=== PATIENT | female | born 1995 | race Caucasian/White ===

== ENCOUNTER 2017-07-20 19:27 | Emergency (ER) | payer BC, OTHER ==
[2017-07-20] MEDS ORDERED: NS 1,000 ML IV ONE (19:45)
[2017-07-20] MEDS ORDERED: methylPREDNISolone SOD SUCC 125 MG/2 ML VIAL IVP ONE (19:45)
[2017-07-20] MEDS ORDERED: RANITIDINE 50 MG/2 ML VIAL IVP ONE (19:45)
--- NOTE | 2017-07-20 19:45 | EDPHY ---
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 "PTSD from hospital stays.". 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 She then went to the gym and had on long pants. She remembers using the mat. Upon returning home she noticed that she had hives that started on bilateral lower legs and spread up through torso and on to neck and shoulders. Reports that they are extremely itchy. This has never happened to her before. Denies any new detergent/foods/medications. Patient denies any shortness of breath/ difficulty swallowing/difficulty talking/facial swelling. She tried nothing for the symptoms. No prior history of anaphylaxis. LMP 2-3 weeks ago. 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 "PTSD from hospital stays." PSH:none Social history: Employed. Currently in a relationship. Family history noncontributory. CONSTITUTIONAL: Extremely pleasant no distress young adult white female, awake and alert, no obvious distress HEENT: Atraumatic and normocephalic, PERRL, EOMI. Nares patent; no rhinorrhea; no nasal mucosal edema. Tympanic membranes clear. Oropharynx clear, no exudate and moist pink mucosa. Airway patent. No lymphadenopathy. No meningismus. Cardiovascular: Normal S1/S2, regular rate, regular rhythm, without murmur rub or gallop. PULMONARY/CHEST: Symmetrical and nontender. Clear to auscultation bilaterally. Good air movement. No accessory muscle usage. ABDOMEN: Soft, nondistended, nontender, no rebound, no guarding, no peritoneal signs, no masses or organomegaly. No CVAT. EXTREMITIES: 2/2 pulses, strength 5/5, no deformities, no clubbing, no cyanosis or edema. NEUROLOGICAL: no focal neuro deficits. GCS 15. SKIN: Warm and dry, urticaria noted on thighs torso and back with superficial excoriations from scratching. no erythema. no rash. Good capillary refill. (Yeny Gaston) Constitutional: Initial Vital Signs Temperature (C) 36.8 C 07/20/17 19:30 Heart Rate 61 07/20/17 19:30 Respiratory Rate 18 07/20/17 19:30 Blood Pressure 99/58 L 07/20/17 19:30 O2 Sat (%) 100 07/20/17 19:30 O2 Delivery Mode Room Air Allergies/Adverse Reactions: No Known Allergies Allergy (Verified 07/20/17 19:33) Home Medications: Medication Instructions Recorded NK [No Known Home Meds] 01/16/16 EPINEPHrine [Epipen 0.3 MG] 0.3 mg IM ONCE #2 syr 07/20/17 Medical Decision Making ED Course/Re-evaluation: 1944: Given IV Solu-Medrol 125 mg, IV Benadryl 50 mg, IV Zantac No signs of airway compromise/respiratory distress/anaphylaxis/angioedema. reassessed patient 1 hr later; complete resolution of symptoms. Given prescription for EpiPen and advised to use Benadryl p.r.n.. Patient is unsure of the trigger at this point. This patient was seen under the supervision of my secondary supervising physician. I evaluated care for this patient independently. (Yeny Gaston) Differential Diagnosis: Differential diagnosis includes but is not limited to C1 esterase deficiency, mast cell activation syndrome, anaphylaxis. (Yeny Gaston) Other Provider: PHYSICIAN DOCUMENTATION: The patient was evaluated and managed by the Physician Heart Surgeon. My co- signature indicates that I have reviewed this chart and I agree with the findings and plan of care as documented. I am the secondary supervising physician. (Orlando Patterson) - Data Points Medications Given: Discontinued Medications Diphenhydramine HCl (Benadryl Injection) 50 mg IVP EDNOW ONE Stop: 07/20/17 19:46 Last Admin: 07/20/17 19:51 Dose: 50 mg Sodium Chloride (Ns) 1,000 mls @ 0 mls/hr IV ONCE ONE; Wide Open PRN Reason: Protocol Stop: 07/20/17 19:46 Last Admin: 07/20/17 19:51 Dose: 1,000 mls Methylprednisolone Sodium Succinate (Solu-Medrol) 125 mg IVP EDNOW ONE Stop: 07/20/17 19:46 Last Admin: 07/20/17 19:51 Dose: 125 mg Ranitidine HCl (Zantac) 50 mg IVP EDNOW ONE Stop: 07/20/17 19:46 Last Admin: 07/20/17 19:52 Dose: 50 mg Departure - Departure Disposition: Home, Routine, Self-Care Clinical Impression: Urticaria Condition: Good Instructions: Urticaria (ED) Additional Instructions: Take Benadryl 25-50 mg every 4-6 hours as needed for allergic reaction, itching. Take cool showers until all hives have resolved. Allergic Reaction: Return to the Emergency Department for lip, tongue, throat, or face swelling, or any trouble breathing or swallowing. Referrals: PCP Not In,Dictionary [Medical Doctor] - As per Instructions [facility],. [Clinic] - As per Instructions Prescriptions: EPINEPHrine [Epipen 0.3 MG] 0.3 mg IM ONCE #2 syr
[2017-07-20 20:57] VITALS: BP 110/62
[2017-07-20] MEDS ORDERED: SODIUM CL 0.9% 20 ML VIAL ONE (22:05)
[2017-07-20] MEDS ORDERED: RANITIDINE 50 MG/2 ML VIAL ONE (22:05)
[2017-07-20] MEDS ORDERED: methylPREDNISolone SOD SUCC 125 MG/2 ML VIAL ONE (22:05)
== END 2017-07-20 20:56 | disposition home or self-care (01) ==
DX: L50.9 Urticaria, unspecified (principal)
CPT/HCPCS: 96374; J1200; J2780; J2930

== ENCOUNTER 2017-07-25 19:55 | Emergency (ER) | payer OTHER ==
--- NOTE | 2017-07-25 20:05 | EDPHY ---
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 "PTSD from hospital stays.". PSH:none - Social History Smoking Status: Never smoked Constitutional: Initial Vital Signs Temperature (C) 36.7 C 07/25/17 19:58 Heart Rate 81 07/25/17 19:58 Respiratory Rate 18 07/25/17 19:58 Blood Pressure 110/66 07/25/17 19:58 O2 Sat (%) 99 07/25/17 19:58 O2 Delivery Mode Room Air Allergies/Adverse Reactions: No Known Allergies Allergy (Verified 07/20/17 19:33) Home Medications: Medication Instructions Recorded EPINEPHrine [Epipen 0.3 MG] 0.3 mg IM ONCE #2 syr 07/20/17 Famotidine [Pepcid 20 MG (OTC)] 20 mg PO DAILY #10 tab 07/25/17 diphenhydrAMINE [Benadryl 25 MG 25 mg PO 07/25/17 (*)] predniSONE [Prednisone] mg PO 07/25/17 Medical Decision Making ED Course/Re-evaluation: CHIEF COMPLAINT: Rash HISTORY OF PRESENT ILLNESS: The patient is a 21 y/o female complaining of a rash since Thursday, 5 days ago. She was seen in this emergency department on Thursday for these symptoms and subsequently saw her PCP who prescribed her a Medrol dose pack and advised to take Benadryl. She has one day left of her Medrol dose pack. Last took Benadryl around an hour ago. She has also taken Tylenol and ibuprofen without relief of symptoms. The rash has not improved and she is unsure if it is due to an environmental allergen. She is currently lightheaded. Denies chest pain, shortness of breath, abdominal pain, urinary or bowel complaints, fever. REVIEW OF SYSTEMS: A 10 point review of systems was performed and is negative with the exception of the elements mentioned in the history of present illness. PHYSICAL EXAM: HR, BP, O2 Sat, RR. Temp noted General Appearance: Tearful, alert, well hydrated, appropriate, and non-toxic appearing. Head: Atraumatic without scalp tenderness or obvious injury Eyes: Pupils equal, round, reactive to light and accommodation, EOMI, no trauma , no injection. Ears: Clear bilaterally, no perforation, normal landmarks Nose: Atraumatic, no rhinorrhea, clear. Throat: No oropharyngeal swelling or airway problems. There is no erythema or exudates, no lesions, normal tonsils, mucus membranes moist. Neck: Supple, nontender, no lymphadenopathy. Respiratory: No retractions, no distress, no wheezes, and no accessory muscle use. Lungs are clear to auscultation bilaterally. Cardiovascular: Regular rate and rhythm, no murmurs, rubs, or gallops. Bilateral carotid, radial, dorsalis pedis, and posterior tibial pulses intact. Good capillary refill all extremities. Gastrointestinal: Abdomen is soft, nontender, non-distended, no masses, no rebound, no guarding, no peritoneal signs. Musculoskeletal: Normal active ROM of all extremities, atraumatic. Neurological: Alert, appropriate, and interactive. Nonfocal neuro. Skin: Scattered hives, good turgor, no nodules on palpation. Past medical history: Depression, bipolar, anxiety, drug induced psychosis with Xanax and Adderall. "PTSD from hospital stays." Past surgical history: Denies Family history: Denies Social history: Boyfriend at bedside, lives in [facility] DIFFERENTIAL DIAGNOSIS: The differential diagnosis included but was not limited to angioedema, anaphylaxis, anaphylactoid reaction, urticarial reaction, and other infectious causes for skin rash. MEDICAL DECISION MAKING: The patient is a 21 y/o female complaining of a rash since Thursday, 5 days ago. On exam she has scattered hives but no oropharyngeal swelling or airway blockage. 10mg IV Decadron, 40mg PO Pepcid, 50mg PO Benadryl administered. 2055: Reassessed patient, she is feeling better after medications and no longer has a rash. I have prescribed her Pepcid and advised her to take Zyrtec. I have advised her to follow up with Dr. Pompa, materials handling coordinator. Return precautions provided ; patient is comfortable with this plan. - Data Points Medications Given: Discontinued Medications Dexamethasone (Decadron Injection) 10 mg IVP EDNOW ONE Stop: 07/25/17 20:14 Last Admin: 07/25/17 20:17 Dose: 10 mg Diphenhydramine HCl (Benadryl Injection) 50 mg IVP EDNOW ONE Stop: 07/25/17 20:14 Last Admin: 07/25/17 20:17 Dose: 50 mg Famotidine (Pepcid) 40 mg IVP EDNOW ONE Stop: 07/25/17 20:14 Last Admin: 07/25/17 20:17 Dose: 40 mg Departure - Departure Disposition: Home, Routine, Self-Care Clinical Impression: Allergic reaction Qualifiers: Encounter type: initial encounter Qualified Code(s): T78.40XA - Allergy, unspecified, initial encounter Condition: Good Instructions: Allergies (ED), Allergy Testing (ED) Additional Instructions: 1. Follow-up with your primary doctor within 72 hours. 2. Use [id number] Benadryl as directed for itching. Return to the Emergency Department for shortness of breath, difficulty swallowing, difficulty breathing, worsening of rash, fever or other worsening of condition. 3. When symptoms have completely subsided, follow up with an materials handling coordinator soon as possible to determine the cause of the allergic reaction. 4. Take Pepcid as prescribed. 5. Take Zyrtec, you can buy this over the counter. Referrals: Daniel Pompa MD [Medical Doctor] - As per Instructions Prescriptions: Famotidine [Pepcid 20 MG (OTC)] 20 mg PO DAILY #10 tab Report Scribed for: Eldon Owens Report Scribed by: Keturah Crews Date of Report: 07/25/17 Time of Report: 20:08
[2017-07-25] MEDS ORDERED: DEXAMETHASONE 10 MG/ML VIAL IVP ONE (20:13)
[2017-07-25] MEDS ORDERED: FAMOTIDINE 20 MG/2 ML SDV IVP ONE (20:13)
[2017-07-25] MEDS ORDERED: FAMOTIDINE 20 MG/2 ML SDV ONE (20:15)
[2017-07-25 21:33] VITALS: BP 105/78
== END 2017-07-25 21:34 | disposition home or self-care (01) ==
DX: T78.40XA Allergy, unspecified, initial encounter (principal)
CPT/HCPCS: 96374; J1100; J1200

== ENCOUNTER 2017-07-26 19:41 | Emergency (ER) | payer OTHER ==
--- NOTE | 2017-07-26 20:20 | EDPHY ---
H & P Time Seen by Provider: 07/26/17 20:05 HPI/ROS: Chief complaint. Hives HPI. 21-year-old female who has been seen twice in our emergency department for hives. She was seen yesterday on 07/25 and was treated in the rash got much better and essentially was resolved. However today the rash has come back she describes it as itchy and burning. It is generalized and especially around her face. No sense of oral lesions. No trouble breathing or swallowing. She speaks in full sentences. She today had some abdominal pain with nausea vomiting. She complains of some crampy periumbilical pain. No radiation to the back. She was seen initially 514 and then again yesterday. Possibly new detergent as a cause. Otherwise no travel, recent URI symptoms, known exposures. ROS Constitutional. no fever/chills, no weakness Eyes. no problems with vision ENT. no sore throat, no nasal drainage Cardiovascular. no chest pain Respiratory. no shortness of breath, no cough Abdominal. no abdominal pain, no nausea/vomiting, no diarrhea . no problems urinating MS. no calf pain/swelling, no neck/back pain, no joint pain Skin. Generalized hives Lymph. no swollen glands Neuro. no headache, no dizziness, no difficulty walking or with speech Past Medical/Surgical History: Depression, bipolar, anxiety, drug induced psychosis Social History: Single, nonsmoker, no alcohol Smoking Status: Never smoked Physical Exam: General Appearance: Alert well-developed female moderate distress vital signs significant for heart rate 128 Eyes: Pupils equal and round no pallor or injection. ENT, pharynx without injection. No oral lesions. There is no stridor. Respiratory: There are no retractions, lungs are clear to auscultation. Cardiovascular: Regular rate and rhythm. Gastrointestinal: Abdomen is soft and nontender, no masses, bowel sounds normal. Neurological: Awake and alert, sensory and motor exams grossly normal. Skin: Generalized maculopapular hive type rash Musculoskeletal: Neck is supple nontender. Extremities symmetrical, full range of motion. Psychiatric: Patient is oriented X 3, there is no agitation. Constitutional: Initial Vital Signs Temperature (C) 36.6 C 07/26/17 19:45 Heart Rate 128 H 07/26/17 19:45 Respiratory Rate 18 07/26/17 19:45 Blood Pressure 100/79 07/26/17 19:45 O2 Sat (%) 100 07/26/17 19:45 O2 Delivery Mode Room Air Allergies/Adverse Reactions: No Known Allergies Allergy (Verified 07/20/17 19:33) Home Medications: Medication Instructions Recorded EPINEPHrine [Epipen 0.3 MG] 0.3 mg IM ONCE #2 syr 07/20/17 Famotidine [Pepcid 20 MG (OTC)] 20 mg PO DAILY #10 tab 07/25/17 diphenhydrAMINE [Benadryl 25 MG 25 mg PO 07/25/17 (*)] predniSONE [Prednisone] mg PO 07/25/17 Medical Decision Making Procedures: Epinephrine IM IV normal saline. Solu-Medrol, Benadryl, Pepcid IV. Re-evaluation 9:00 p.m. Patient is much improved. ED Course/Re-evaluation: Re-evaluation 9:45 p.m. Patient is much improved. Her symptoms have largely resolved. She speaks in full sentences. No stridor Patient and I discussed treatment plan including criteria for return importance of follow-up further evaluation. She expresses understanding and agreement. Differential Diagnosis: Recurrent allergic reaction manifested by hives. Likely this is a topical or ingested allergy in. No evidence for anaphylaxis - Data Points Medications Given: Discontinued Medications Diphenhydramine HCl (Benadryl Injection) 25 mg IVP EDNOW ONE Stop: 07/26/17 20:30 Last Admin: 07/26/17 20:42 Dose: 25 mg Epinephrine HCl (Epinephrine) 0.3 mg IM EDNOW ONE Stop: 07/26/17 20:30 Last Admin: 07/26/17 20:43 Dose: 0.3 mg Sodium Chloride (Ns) 1,000 mls @ 0 mls/hr IV EDNOW ONE; Wide Open PRN Reason: Protocol Stop: 07/26/17 20:31 Last Admin: 07/26/17 20:41 Dose: 1,000 mls Methylprednisolone Sodium Succinate (Solu-Medrol) 125 mg IVP EDNOW ONE Stop: 07/26/17 20:30 Last Admin: 07/26/17 20:43 Dose: 125 mg Ondansetron HCl (Zofran) 4 mg IVP EDNOW ONE Stop: 07/26/17 20:31 Last Admin: 07/26/17 20:41 Dose: 4 mg Ranitidine HCl (Zantac) 50 mg IVP EDNOW ONE Stop: 07/26/17 20:30 Last Admin: 07/26/17 20:42 Dose: 50 mg Departure - Departure Disposition: Home, Routine, Self-Care Clinical Impression: Urticaria Condition: Good Instructions: Urticaria (ED) Additional Instructions: Continue medications for allergic reactions. Return for worsening symptoms. Referrals: KATHRYN DO [Primary Care Provider] - As per Instructions Daniel Pompa MD [Medical Doctor] - 1-2 days without fail
[2017-07-26] MEDS ORDERED: EPINEPHrine 1 MG/ML INJ IM ONE (20:29)
[2017-07-26] MEDS ORDERED: methylPREDNISolone SOD SUCC 125 MG/2 ML VIAL IVP ONE (20:29)
[2017-07-26] MEDS ORDERED: RANITIDINE 50 MG/2 ML VIAL IVP ONE (20:29)
[2017-07-26] MEDS ORDERED: ONDANSETRON 4 MG/2 ML VIAL IVP ONE (20:30)
[2017-07-26] MEDS ORDERED: NS 1,000 ML IV ONE (20:30)
[2017-07-26 23:15] VITALS: BP 107/72
== END 2017-07-26 23:15 | disposition home or self-care (01) ==
DX: L50.9 Urticaria, unspecified (principal); E86.9 Volume depletion, unspecified
CPT/HCPCS: 96374; J0171; J1200; J2405; J2780; J2930